=== PATIENT | female | born 1945 | race Caucasian/White ===

== ENCOUNTER 2017-07-02 17:29 | Emergency (ER) | payer MEDICARE, OTHER ==
[2017-07-02 17:57] VITALS: BP 151/94
--- NOTE | 2017-07-02 18:43 | UC ---
Complaint Female HPI - HPI Summary HPI Summary: Patient is on day 3 of 5 of Cipro for a UTI per her PCP. Patient states that her discomfort with urination has resolved but that after 1 day of the antibiotic she felt increased urinary frequency. She admits to increasing her hydration over the past few days. She denies fever, back pain, nausea. - History Of Current Complaint Chief Complaint: UCGU Stated Complaint: BURNING URINATION Time Seen by Provider: 07/02/17 17:57 Hx Obtained From: Patient Onset/Duration: Gradual Onset, Lasting Days Severity Initially: Mild Severity Currently: Mild Pain Intensity: 0 Pain Scale Used: 0-10 Numeric Character: Not Applicable Aggravating Factor(s): Nothing Associated Signs And Symptoms: Negative: Fever, Back Pain, Vaginal Bleeding/ Discharge, Vaginal Discharge, Nausea, Vomiting(# Of Episodes =) - Allergies/Home Medications Allergies/Adverse Reactions: Allergies Allergy/AdvReac Type Severity Reaction Status Date / Time doxycycline Allergy Nausea Verified 07/02/17 17:58 erythromycin base Allergy Abdominal Verified 07/02/17 17:58 [From Erythrocin] Pain iodixanol [From Visipaque] Allergy Hives Verified 07/02/17 17:58 meperidine [From Demerol] Allergy Vomiting Verified 07/02/17 17:58 bees Allergy Swelling Uncoded 07/02/17 17:58 enviromental Allergy Runny Nose Uncoded 07/02/17 17:58 wasps Allergy Anaphylatic Uncoded 07/02/17 17:58 Shock Home Medications: Home Medications Ciprofloxacin HCl [Cipro] 250 mg PO 07/02/17 [History] PMH/Surg Hx/FS Hx/Imm Hx Endocrine History: Hypothyroidism, Dyslipidemia Respiratory History: Asthma - Surgical History Surgical History: Yes Surgery Procedure, Year, and Place: tubal ligation, knee surgery - Family History Known Family History: Positive: Hypertension - Social History Alcohol Use: Weekly Substance Use Type: None Smoking Status (MU): Never Smoked Tobacco Review of Systems Constitutional: Negative Respiratory: Negative, Shortness Of Breath Cardiovascular: Negative Gastrointestinal: Negative Genitourinary: Dysuria - NOW RESOLVED, Frequency, Urgency All Other Systems Reviewed And Are Negative: Yes Physical Exam Triage Information Reviewed: Yes Appearance: Well-Appearing, No Pain Distress, Well-Nourished Vital Signs: Initial Vital Signs Temp 97.3 F 07/02/17 17:52 Pulse 64 07/02/17 17:52 Resp 18 07/02/17 17:52 BP 151/94 07/02/17 17:52 Pulse Ox 100 07/02/17 17:52 Vital Signs Reviewed: Yes Eyes: Positive: Conjunctiva Clear ENT: Positive: Hearing grossly normal Neck: Positive: Supple Respiratory: Positive: No respiratory distress, No accessory muscle use Cardiovascular: Positive: Pulses Normal Abdomen Description: Positive: Nontender, Soft Musculoskeletal: Positive: No Edema Neurological: Positive: Alert Psychological: Positive: Age Appropriate Behavior Skin: Negative: rashes Diagnostics - Laboratory Diagnostic Studies Completed/Ordered: URINE DIP SP. GR. 1.020, TRACE BLOOD LYSED Complaint Female Dx - Course Course Of Treatment: No indication of persistent infection on urine dip today. Patient's urinary frequency is likely due to her increased hydration since developing UTI symptoms. As the dysuria and discomfort have resolved and all that remains is frequency, have advised patient to complete course of antibiotics and simply monitor her symptoms over the weekend. Should she feel her frequency is due to more than just increased hydration have advised her to call urology for follow-up. Also of note - patient has trace blood on urine dip today. Patient states that she has a history of microscopic hematuria that has been followed by Dr. Kumar. - Differential Dx/Diagnosis Provider Diagnoses: URINARY FREQUENCY Discharge - Sign-Out/Discharge Documenting (check all that apply): Discharge - Discharge Plan Condition: Stable Disposition: HOME Patient Education Materials: Urinary Urgency and Frequency (DC) Referrals: Dwayne Kumar MD [Medical Doctor] - If Needed Alina Concepcion MD [Primary Care Provider] - If Needed Additional Instructions: Your urine is unremarkable on exam today except for a trace amount of blood which you say is not unusual. If your symptoms continue past the weekend call urology for follow-up. In the meantime continue your Cipro to complete the course and ensure adequate hydration. - Billing Disposition and Condition Condition: STABLE Disposition: HOME
== END 2017-07-02 18:50 | disposition home or self-care (01) ==
LOC: UCEAST 17:29
DX: R35.0 Frequency of micturition (principal); Z87.440 Personal history of urinary (tract) infections; E03.9 Hypothyroidism, unspecified; E78.5 Hyperlipidemia, unspecified; J45.909 Unspecified asthma, uncomplicated; Z88.5 Allergy status to narcotic agent; Z88.1 Allergy status to other antibiotic agents; Z91.030 Bee allergy status
CPT/HCPCS: 81003; 99211; G0463

== ENCOUNTER 2020-04-04 09:42 | Observation (INO) ==
[~2020-04-04 09:42] MED LIST: Buffered Lidocaine 1% SYRIN 1 ml INTRADERM ONE; Famotidine IV 10 MG/ML 2 ml VIAL (20 mg) IV ONE; Lactated Ringers 1000 ml BAG 1,000 ML IV SCH
[2020-04-04] MEDS ORDERED: Propofol 10 MG/ML 20 ML BTL ONE ×2 (10:01→13:13)
[2020-04-04] MEDS ORDERED: Midazolam 2 mg/2 ml VIAL 1 mg/ml 2 ml VIAL (2 mg) ONE (10:01)
[2020-04-04] MEDS ORDERED: Ondansetron 4 mg VIAL 2 MG/ML 2 ml VIAL ONE (10:04)
[2020-04-04] MEDS ORDERED: ceFAZolin 2 GM PREMIX 2 GM/50 ML BAG ONE (10:07)
[2020-04-04] MEDS ORDERED: Buffered Lidocaine 1% SYRIN 1 ml INTRADERM ONE (10:08)
[2020-04-04] MEDS ORDERED: Famotidine IV 10 MG/ML 2 ml VIAL (20 mg) ONE (10:08)
[2020-04-04] MEDS ORDERED: Lidocaine 2% PF 5 ML VIAL ONE (11:33)
[2020-04-04] MEDS ORDERED: fentaNYL 100 mcg/2 ml 50 MCG/ML VIAL ONE (11:33)
[2020-04-04] MEDS ORDERED: Midazolam 5 mg/5 ml VIAL 1 mg/ml 5 ml VIAL (5 mg) ONE (11:33)
[2020-04-04] MEDS ORDERED: ROPIVACAINE 5 MG/ML 30 ML BTL (0.5%) ONE ×2 (11:34→12:13)
[2020-04-04] MEDS ORDERED: Ondansetron 4 mg VIAL 2 MG/ML 2 ml VIAL IV PRN ×2 (14:40→15:05)
[2020-04-04] MEDS ORDERED: fentaNYL 100 mcg/2 ml 50 MCG/ML VIAL IV PRN (14:40)
[2020-04-04] MEDS ORDERED: Naloxone 0.4 mg VIAL 0.4 mg/ml 1 ml VIAL IV PRN (14:40)
[2020-04-04] MEDS ORDERED: Ondansetron ODT 4 mg TAB 4 MG TAB PO PRN (15:05)
[2020-04-04] MEDS ORDERED: diPHENhydraMINE 25 mg TAB PO PRN (15:05)
[2020-04-04] MEDS ORDERED: Magnesium Hydroxide LIQ 30 ML UDC PO PRN (15:05)
[2020-04-04] MEDS ORDERED: diPHENhydraMINE IV 50 MG/ML 1 ml VIAL (BENADRYL) IV PRN (15:05)
[2020-04-04] MEDS ORDERED: Morphine 2 MG/ML SYRINGE IV PRN (15:05)
[2020-04-04] MEDS ORDERED: Lactulose 30 ml UDC PO PRN (15:05)
[2020-04-04] MEDS: Tobramycin 0.3% OPHTH.OINT 1 APPLIC TUBE RIGHT EYE PRN ×2 (16:13→21:39)
[2020-04-04] MEDS: Lactated Ringers 1000 ml BAG 1,000 ML IV SCH (16:53)
[2020-04-04] MEDS ORDERED: CMC:Simvastatin 20 mg TAB (NF) PO SCH (21:00)
[2020-04-04] MEDS: Magnesium Hydroxide LIQ 30 ML UDC PO SCH (21:29)
[2020-04-04] MEDS: ceFAZolin 1 GM ADVAN 1 GM in NS 0.9% 50 ML 50 ML IVPB SCH (21:29)
[2020-04-05] MEDS: Lactated Ringers 1000 ml BAG 1,000 ML IV SCH (03:05)
[2020-04-05 05:20] LABS: Hematocrit 34 % (35-47); Hemoglobin 11.7 g/dL (12.0-16.0); Mean Platelet Volume 7.7 fL (7.4-10.4); Platelet Count 212 10^3/uL (150-450)
[2020-04-05 05:41] LABS: Calcium 8.3 mg/dL (8.6-10.3); EGFR African American 65.4 (>60); EGFR Non-African American 54.1 (>60); Potassium 4.2 mmol/L (3.5-5.0)
[2020-04-05] MEDS: ceFAZolin 1 GM ADVAN 1 GM in NS 0.9% 50 ML 50 ML IVPB SCH ×2 (05:45→12:42)
[2020-04-05] MEDS: Magnesium Hydroxide LIQ 30 ML UDC PO SCH (08:27)
[2020-04-05] MEDS ORDERED: Vitamin THERAPEUTIC TAB PO SCH (09:00)
[2020-04-05] MEDS ORDERED: COENZYME Q10 100 MG PO SCH (09:00)
[2020-04-05 11:09] VITALS: BP 101/56
[2020-04-07] MEDS ORDERED: Scopolamine PATCH Remove NOTE PATCH OFF ONE (06:00)
== END 2020-04-05 15:30 | disposition home or self-care (01) ==
LOC: SSU 09:42 → OR 09:42 → SSU 17:06
PROVIDERS: ADMIT Orthopaedic Surgery Adult Reconstructive Orthopaedic Surgery; ATTEND Orthopaedic Surgery Adult Reconstructive Orthopaedic Surgery